=== PATIENT | male | born 1955 | race Caucasian/White ===

== ENCOUNTER 2018-08-25 23:43 | Inpatient (IN) | payer OTHER ==
[~2018-08-25] VITALS: Ht 172.7 cm; Wt 92.5 kg
[~2018-08-25 23:43] MED LIST: ASPIR 8181 MG PO; ATORVASTATIN CA40 MG PO; COQ-10100 MG PO; DURLAZA162.5 MG PO; EFFIENT10 MG PO; LOPRESSOR25 PO; NITROGLYCERIN0.4 MG SUBLING; PEPCID20 MG PO; PRINIVIL10 MG PO; SIMVASTATIN40 MG PO
[2018-08-25 23:47] VITALS: BP 165/76
[2018-08-25] MEDS ORDERED: CRESTOR20 MG PO (23:54)
[2018-08-26 00:21] LABS: ABSOLUTE NEUTROPHILS 5.6 thou/uL (1.4-8.2); BASOPHILS 0.8 % (0.0-2.0); EOSINOPHILS 3.2 % (0.0-3.0); HEMATOCRIT 40.4 % (42.0-52.0); HEMOGLOBIN 13.8 gm/dL (14.0-18.0); LYMPHOCYTES 34.6 % (24.0-44.0); MCH 29.3 pg (26.0-34.0); MCHC 34.1 g/dL (28.0-37.0); MCV 85.9 fL (80.0-100.0); MONOCYTES 10.8 % (1.0-8.0); PLATELET COUNT 260 thou/uL (150-400); POLYS 50.6 % (36.0-66.0); RDW 13.5 % (10.5-14.5); WBC 11.1 thou/uL (4.0-11.0)
[2018-08-26 00:32] LABS: ANION GAP 14 mmol/L (7-16); BUN 23 mg/dL (7-18); CALCIUM 9.3 mg/dL (8.5-10.1); CHLORIDE 103 mmol/L (98-107); CO2 24 mmol/L (21-32); CREATININE 1.2 mg/dL (0.7-1.3); GLUCOSE 112 mg/dL (74-106); POTASSIUM 3.6 mmol/L (3.5-5.1); SODIUM 141 mmol/L (136-145)
[2018-08-26 00:41] LABS: ALBUMIN 3.9 g/dL (3.4-5.0); SGOT 18 U/L (15-37); SGPT 32 U/L (30-65); TOTAL BILIRUBIN 0.3 mg/dL (<0.1-1.0); TOTAL PROTEIN 7.2 g/dL (6.4-8.2); TROPONIN-I <0.06 ng/mL (<0.06)
[2018-08-26 01:44] VITALS: BP 111/49
[2018-08-26 02:16] VITALS: BP 110/45
--- NOTE | 2018-08-26 05:37 | NUR ---
Pt an overnight admit from ED with Chest PAin. Initial Cardiac work up negative. Arrives on unit at 0158, with . Patient free from chest pain after all ED interventions. Pt admitted for Observation due to Cardiac history of 6 stents. On cp reported overnight. vitals remain stable. Will continue to follow POC.
[2018-08-26 05:49] LABS: CHOLESTEROL 121 mg/dL (<200); HDL CHOLESTEROL 30 mg/dL (>40); LDL CHOLESTEROL 73 mg/dL (<100); TRIGLYCERIDE 91 mg/dL (<150); VLDL 18 mg/dL (<40)
[2018-08-26 05:50] LABS: SERUM ASSESSMENT Clear
[2018-08-26 06:13] VITALS: BP 119/57
[2018-08-26 07:48] VITALS: BP 109/60
--- NOTE | 2018-08-26 08:57 | EKG ---
[address] [address] ELECTROCARDIOGRAM REPORT Name: ISELAJOSI IVAN Room #: 219-P ADM IN M.R.#: [id number] ������������������ Admission: 08/26/18 ������������������ Attend Phys: Nurys Villela Discharge: ������������������ Date of : 57 Report #: [id number] ����������������������������������������������������������������� [id number] THIS REPORT FOR: //name// [facility] ED Test Date: 2018-08-25 Test Time: 23:50:57 Pat Name: JOSI WEISS Department: Room: 219 Gender: M Retoucher: SHAVON : 1955 Requested By: Lara Franco Order Number: [id number] MD: Shaquille Landin Measurements Intervals [place] Rate: 69 P: 29 [place]: 201 QRS: 47 QRSD: 101 T: 44 QT: 403 QTc: 432 Interpretive Statements Sinus rhythm RSR' in V1 or V2, probably normal variant Compared to ECG 07/19/2015 22:57:20 RSR' in V1 or V2 now present Electronically Signed On 08-26-2018 8:57:12 CDT by Shaquille Landin [email or web address] ��������������������������������������������� <ELECTRONICALLY SIGNED> ���������������������������������������� By: Shaquille Landin MD, [facility] ��������������������������������������������� 08/26/18 0857 2350 2350 Shaquille Landin MD, [facility] /EPI
[2018-08-26] MEDS ORDERED: PROTONIX40 M1 PO (09:37)
[2018-08-26] MEDS ORDERED: NITROGLYCERIN0.4 MG SUBLING (09:37)
[2018-08-26 11:05] VITALS: BP 109/60
--- NOTE | 2018-08-26 19:52 | NUR ---
ASSUMED CARE OF PT AT 0700. PT A&OX4, UP AD MYRTLE. PT DENIED CHEST PAIN/PRESSURE THIS SHIFT. DR. CALVILLO ROUNDED ON PT AND GAVE OKAY FOR DISCHARGE. PT VITALS WERE WITHIN NORMAL LIMITS EXCEPT SBP WAS IN LOW 100'S. PT WAS SINUS RHYTHM WITH 1ST DEGREE BLOCK ON TELEMETRY. ONE IV AND TELEMETRY REMOVED. PT COMMUNICATED UNDERSTANDING OF ALL DISCHARGE ORDERS, MEDS, AND FOLLOW UP APPTS.
--- NOTE | 2018-08-29 09:55 | HC ---
[facility] [place] [address] CONSULTATION Name: JOSI WEISS Room #: 219-P [facility] IN M.R.#: [id number] Admission: 08/26/18 ������������������ Attend Phys: Nurys Villela Discharge: 08/26/18 ������������������ Date of : 57 Report #: [id number] THIS REPORT FOR: //name// CC: Tasia Villela DATE OF SERVICE: 08/26/2018 TYPE OF REPORT: Inpatient consultation. REQUESTING PHYSICIAN: Nurys Villela M.D. CHIEF COMPLAINT: Chest pain and epigastric pain. HISTORY OF PRESENT ILLNESS: The patient is a 63-year-old patient of mine who has a history of coronary artery disease and PCI in 2014. He felt really well yesterday. However, this morning in the middle of the night, he woke up with a sudden onset of a 6/10 epigastric pain lasted several minutes. It was not exertional. It went away on its own. This morning, he is asymptomatic. His presenting ECG was normal. His cardiac troponin levels are normal. He denies exertional symptoms. His symptoms are nothing like his pre-PCI pain in 2015. He denies weakness, fatigue, shortness of breath, orthopnea, PND, exertional chest pressure or tightness. PAST MEDICAL HISTORY: Significant for percutaneous coronary intervention in 2015, stenting to the LAD and circumflex and right coronary artery, posterolateral branch. He has normal LV function. He has hypertension and hyperlipidemia. HOME MEDICATIONS: Include aspirin, lisinopril 10 mg daily, metoprolol tartrate 12.5 mg daily and Zocor 40 mg daily. SOCIAL HISTORY: He is a nonsmoker. REVIEW OF SYSTEMS: GENERAL: No fevers or chills. PULMONARY: No wheezing or cough. GASTROINTESTINAL: No nausea, vomiting, hematemesis or melena. SKIN: No rashes. CARDIOVASCULAR: Positive chest pain. No orthopnea. No PND. No dyspnea with exertion. No edema. ENDOCRINE: He is not known to be a diabetic. [facility] [address] [place] [address] CONSULTATION Name: ISELAJOSI LOVE Room #: 219-[facility] IN ..#: [id number] Admission: 08/26/18 ������������������ Attend Phys: Nurys Villela Discharge: 08/26/18 ������������������ Date of : 57 Report #: [id number] SKIN: No rashes. GENERAL: No fevers or chills. PAST SURGICAL HISTORY: Prior vasectomy and PCI. PHYSICAL EXAMINATION: VITAL SIGNS: Blood pressure is 109/60 and pulse of 56. GENERAL: This is a pleasant, mildly obese adult male who is alert, oriented, in no apparent distress. HEENT: Eyes are intact. No facial asymmetry. NECK: Supple. No jugular venous distention. CARDIOVASCULAR: Regular. I cannot hear a murmur or S3. LUNGS: Clear to polyphagia. SKIN: No rashes. RADIOLOGICAL DATA: Electrocardiogram shows normal sinus rhythm and normal ST segments, 2 ECGs. Chest x-ray is negative chest. LABORATORY DATA: Hemoglobin is 13.8; white blood cell count 11.1 and platelet counts 260,000. Sodium is 141, potassium 3.6, chloride is 103, CO2 is 24, BUN is 23 and creatinine is 1.9. Troponin-I is 0.06 x 2 sets. BNP is 40. IMPRESSION: 1. Chest pain. The symptoms are atypical seemingly given that they are epigastric that they could be gastrointestinal in nature. He has ruled out for myocardial infarction. However, he should have an evaluation with a stress test, which can be performed outpatient. The patient ate breakfast this morning. 2. Coronary artery disease as noted above. We will check a treadmill nuclear stress test. He will continue with aspirin and p.r.n. nitrates as well as other medications. 3. Hyperlipidemia. 4. Coronary artery disease. ��������������������������������������������� <ELECTRONICALLY SIGNED> ���������������������������������������� By: Vishal Kunz MD, [facility] ��������������������������������������������� 08/29/18 0955 0911 0050 Vishal Kunz MD, FACC /nt
== END 2018-08-26 11:49 | disposition home or self-care (01) | DRG 392 ==
LOC: ER 23:43 → 2N 08-26 01:08 → EROBS 08-26 01:08 → 2N 08-26 01:43
PROVIDERS: Nurse Practitioner Family; Student in an Organized Health Care Education/Training Program; ADMIT Hospitalist
DX: K21.9 Gastro-esophageal reflux disease without esophagitis (principal); I10 Essential (primary) hypertension; E78.5 Hyperlipidemia, unspecified; I25.10 Atherosclerotic heart disease of native coronary artery without angina pectoris; E78.00 Pure hypercholesterolemia, unspecified; Z95.5 Presence of coronary angioplasty implant and graft; Z98.52 Vasectomy status; Z79.82 Long term (current) use of aspirin; Z79.899 Other long term (current) drug therapy
CPT/HCPCS: 10081

== ENCOUNTER → 2018-09-04 | Outpatient (CLI) | payer OTHER ==
[~2018-09-04] MED LIST changes: +CRESTOR20 MG PO; +PROTONIX40 M1 PO
== END ==
LOC: NUC 07:23
DX: R07.9 Chest pain, unspecified (principal); I25.110 Atherosclerotic heart disease of native coronary artery with unstable angina pectoris; E78.5 Hyperlipidemia, unspecified; I10 Essential (primary) hypertension; Z79.899 Other long term (current) drug therapy

== ENCOUNTER 2019-06-29 00:23 | Inpatient (IN) | payer OTHER ==
[2019-06-29] VITALS (7 sets, daily range): BP systolic 104–166; BP diastolic 48–73
[~2019-06-29] VITALS: Ht 170.2 cm; Wt 93.0 kg
[2019-06-29] MEDS ORDERED: ZETIA10 MG PO (00:27)
[2019-06-29 00:54] LABS: EOSINOPHILS 3.1 % (0.0-3.0); HEMATOCRIT 43.6 % (42.0-52.0); HEMOGLOBIN 14.5 gm/dL (14.0-18.0); LYMPHOCYTES 27.3 % (24.0-44.0); MCH 29.1 pg (26.0-34.0); MCHC 33.3 g/dL (28.0-37.0); MCV 87.4 fL (80.0-100.0); MONOCYTES 10.2 % (1.0-8.0); PLATELET COUNT 250 thou/uL (150-400); POLYS 58.4 % (36.0-66.0); RBC 4.99 mil/uL (4.50-6.00); RDW 14.2 % (10.5-14.5); WBC 10.3 thou/uL (4.0-11.0)
[2019-06-29 00:58] LABS: ANION GAP 11 mmol/L (7-16); BUN 28 mg/dL (7-18); CALCIUM 9.5 mg/dL (8.5-10.1); CHLORIDE 103 mmol/L (98-107); CO2 23 mmol/L (21-32); CREATININE 1.1 mg/dL (0.7-1.3); GLUCOSE 139 mg/dL (74-106); SODIUM 137 mmol/L (136-145)
[2019-06-29 01:07] LABS: LIPASE 133 U/L (73-393); TROPONIN-I <0.06 ng/mL (<0.06)
--- NOTE | 2019-06-29 03:54 | NUR ---
CALL REPORT TO TACOS JOSEPH.
[2019-06-29 06:01] LABS: CHOLESTEROL 104 mg/dL (<200); HDL CHOLESTEROL 30 mg/dL (>40); LDL CHOLESTEROL 61 mg/dL (<100); TC:HDL 3.5 Ratio (Not establshd); TRIGLYCERIDE 66 mg/dL (<150); VLDL 13 mg/dL (<40)
[2019-06-29 06:07] LABS: SERUM ASSESSMENT Clear
--- NOTE | 2019-06-29 08:17 | NUR ---
ASSUME CARE 1900. PT/VITALS STABLE. HR RUNS IN 40s AND 50S WITH PAUSES NOTED. CONITUOUS EPIGASTRIC PAIN WITH MILD RELIEF FROM MORPHINE. ASSESSMET CHARTED. CARDIOLOGY AND GI CONSULTED. PLAN IS TO CONTINUE TO MANAGE CVHEST PAIN. WOULD FOLLOW WITH POC.
--- NOTE | 2019-06-29 10:00 | NUR ---
DR. LEÓN PRESENT TO SEE PT THIS AM. HE DISCOVERED PT'S EPIGASTRIC PAIN WAS PRESENT IN HIS RUQ. PT TRANSPORTED TO RADIOLOGY DEPARTMENT, THEN BACK TO CCU IN WHEELCHAIR BY PCT. NPO. DR. LORA CONSULTED AND GI CONSULTED.
[2019-06-29 10:20] LABS: ALBUMIN 3.8 g/dL (3.4-5.0); CALCIUM 8.8 mg/dL (8.5-10.1); CREATININE 1.2 mg/dL (0.7-1.3); TOTAL BILIRUBIN 0.4 mg/dL (<0.1-1.0); TOTAL PROTEIN 6.9 g/dL (6.4-8.2)
--- NOTE | 2019-06-29 13:24 | EKG ---
[facility] [place] [address] [place] [address] ELECTROCARDIOGRAM REPORT Name: JOSI WEISS Room #: 218-P ADM IN M.R.#: [id number] Admission: 06/29/19 Attend Phys: Luis Olvera MD Discharge: Date of : 57 Report #: [id number] THIS REPORT FOR: cc: Tasia Jones MD, Cora A. MD Lundgren,Shaquille Salvador MD [facility] ~ THIS REPORT FOR: //name// [facility] ED Test Date: 2019-06-29 Test Time: 00:29:21 Pat Name: JOSI WEISS Department: Room: 218 Gender: M Exhibit Designer: JEFE BALDERRAMA : 1955 Requested By: Gautam Garcia Order Number: [id number] MD: Shaquille Landin Measurements Intervals [place] Rate: 69 P: 83 [place]: 218 QRS: 38 QRSD: 96 T: 49 QT: 401 QTc: 430 Interpretive Statements Sinus rhythm Borderline prolonged LA interval RSR' in V1 or V2, probably normal variant Compared to ECG 08/25/2018 23:50:57 No significant changes Electronically Signed On 06-29-2019 13:23:29 CDT by Shaquille Landin [email or web address] <ELECTRONICALLY SIGNED> By: Shaquille Landin MD, [facility] 06/29/19 1323 0029 0029 Shaquille Landin MD, [facility] /EPI
--- NOTE | 2019-06-29 13:25 | EKG ---
[facility] [place] [address] [place] [address] ELECTROCARDIOGRAM REPORT Name: JOSI WEISS Room #: 218-P ADM IN M.R.#: [id number] Admission: 06/29/19 Attend Phys: Luis Olvera MD Discharge: Date of : 57 Report #: [id number] THIS REPORT FOR: cc: Tasia Jones MD, Cora A. MD Lundgren,Shaquille Salvador MD [facility] ~ THIS REPORT FOR: //name// [facility] ED Test Date: 2019-06-29 Test Time: 01:11:25 Pat Name: JOSI WEISS Department: Room: 218 Gender: M Eyedotter: belle : 1955 Requested By: Gautam Garcia Order Number: [id number] MD: Shaquille Landin Measurements Intervals [place] Rate: 66 P: 45 [place]: 197 QRS: 21 QRSD: 102 T: 43 QT: 406 QTc: 426 Interpretive Statements Sinus rhythm RSR' in V1 or V2, probably normal variant Compared to ECG 08/25/2018 23:50:57 No significant change was found Electronically Signed On 06-29-2019 13:23:56 CDT by Shaquille Landin [email or web address] <ELECTRONICALLY SIGNED> By: Shaquille Landin MD, [facility] 06/29/19 1323 0111 0111 Shaquille Landin MD, [facility] /EPI
--- NOTE | 2019-06-29 13:25 | EKG ---
[facility] [place] [address] ELECTROCARDIOGRAM REPORT Name: JOSI WEISS Room #: 218-P ADM IN M.R.#: [id number] Admission: 06/29/19 Attend Phys: Luis Olvera MD Discharge: Date of : 57 Report #: [id number] THIS REPORT FOR: cc: Tasia Jones MD, Cora A. MD Lundgren,Shaquille Salvador MD [facility] ~ THIS REPORT FOR: //name// [facility] ED Test Date: 2019-06-29 Test Time: 01:32:30 Pat Name: JOSI WEISS Department: Room: 218 Gender: M Spanish Speaking Nanny: stacie : 1955 Requested By: Gautam Garcia Order Number: [id number] MD: Shaquille Landin Measurements Intervals [place] Rate: 57 P: 46 [place]: 230 QRS: 43 QRSD: 97 T: 46 QT: 416 QTc: 405 Interpretive Statements Sinus rhythm with sinus arrhythmia Atrial premature complexes Prolonged OR interval RSR' in V1 or V2, probably normal variant Baseline wander in lead(s) V3 Compared to ECG 08/25/2018 23:50:57 Atrial premature complex(es) now present Electronically Signed On 06-29-2019 13:24:50 CDT by Shaquille Landin [email or web address] <ELECTRONICALLY SIGNED> By: Shaquille Landin MD, [facility] 06/29/19 1324 1 1 Shaquille Landin MD, [facility] /EPI
--- NOTE | 2019-06-29 14:18 | NUR ---
DR. LORA PRESENT TO SEE PT. DETERMINED SURGERY TODAY. REMAINS NPO. PRESENT. PT TO SURGERY PER BED AFTER REPORT GIVEN TO PRE-OP RN.
--- NOTE | 2019-06-29 16:30 | NUR ---
RECEIVED BY CCU RN'S IN ROOM 218 POST TIERRA HWANG AT 1555. WHEN RN RETURNED FROM LUNCH BREAK, PT ASSESSED AT 1630. SEE ASSESSMENT FOR DETAILS.
--- NOTE | 2019-06-29 20:00 | NUR ---
TOLERATED ICE CHIPS, WATER. TOLERATING. ADVANCED TO CHICKEN BROTH. REMAINS PRESENT, PROVIDING SUPPORT. REPORT GIVEN TO WALT RAI RN.
[2019-06-30] VITALS (7 sets, daily range): BP systolic 101–118; BP diastolic 48–65
[2019-06-30 03:08] LABS: GLYCOHEMOGLOBIN (HGB A1C) 5.6 % (4.8-5.6)
--- NOTE | 2019-06-30 04:44 | NUR ---
ASSESSMENTS CHARTED, MEDS GIVEN CHARTED. PATIENT RESTING IN BED DURING SHIFT WITH AT BEDSIDE. TROPONINS ARE NEGATIVE X 3. ON TELEMETRY PT IS SINUS RHYTHM WITH 1ST DEGREE AND BORDER BBB. LUNGS ARE CLEAR. PATIENT C/O SORE THROAT. ICE AND BROTH DIET ADVANCED. UP AT MYRTLE. 4 LAP SITES IN ABDOMEN. ONE IS COVERED WITH GAUZE. ABX THERAPY. PLAN OF CARE IS TO GO HOME TODAY.
--- NOTE | 2019-06-30 11:06 | 2DMMODE ---
[facility] [address] [address] 2 D/M-MODE ECHOCARDIOGRAM Name: JOSI WEISS Room #: 218-P ADM IN M.R.#: [id number] Admission: 06/29/19 Attend Phys: Rina Person MD Discharge: Date of : 57 Report #: [id number] THIS REPORT FOR: cc: Tasia Jones MD, Cora A. MD Lammoglia, Francisco J. MD ~ APPROVED REPORT Study performed: 06/30/2019 10:20:47 EXAM: Comprehensive 2D, Doppler, and color-flow Echocardiogram Patient Location: Bedside Room #: 218 Status: routine BSA: 2.04 HR: 70 bpm BP: 102/50 mmHg Rhythm: NSR Other Information Study Quality: Adequate Indications CAD Chest Pain Hypertension/HDD S^P Gallbladder removal 2D Dimensions IVSd: 10.70 (7-11mm) LVOT Diam: 22.03 (18-24mm) LVDd: 46.24 mm PWd: 11.43 (7-11mm) Ascending Ao: 28.85 (22-36mm) LVDs: 29.29 (25-40mm) Aortic Root: 34.08 mm IVC: 23.00 mm Volumes Left Atrial Volume (Systole) Single Plane 4CH: 36.86 mL Single Plane 2CH: 35.78 mL LA ESV Index: 19.00 mL/m2 Aortic Valve AoV Peak Albin.: 1.54 m/s AO Peak Gr.: 9.48 mmHg LVOT Max P.25 mmHg LVOT Max V: 1.25 m/s [facility] [address] [place] [address] 2 D/M-MODE ECHOCARDIOGRAM Name: JOSI WEISS Room #: 218-P [facility] IN ..#: [id number] Admission: 06/29/19 Attend Phys: Mckinley Cramer Discharge: Date of : 57 Report #: [id number] INEZ Vmax: 3.09 cm2 Mitral Valve E/A Ratio: 1.7 MV Decel. Time: 183.22 ms MV E Max Albin.: 1.17 m/s MV A Albin.: 0.68 m/s MV PHT: 53.13 ms IVRT: 87.66 ms Pulmonary Valve PV Peak Albin.: 1.25 m/s PV Peak Gr.: 6.21 mmHg Pulmonary Vein P Vein S: 0.58 m/s P Vein A: 0.25 m/s P Vein D: 0.50 m/s P Vein A Dur.: 83.0 msec P Vein S/D Ratio: 1.16 Tricuspid Valve TR Peak Albin.: 2.41 m/s TR Peak Gr.: 23.15 mmHg PA Pressure: 33.00 mmHg Left Ventricle The left ventricle is normal size. There is normal LV segmental wall motion. There is normal left ventricular wall thickness. Left ventricular systolic function is normal. The left ventricular ejection fraction is within the normal range. LVEF is 60-65%. The left ventricular diastolic function is normal. Right Ventricle The right ventricle is normal size. The right ventricular systolic function is normal. Atria The left atrium size is normal. The right atrium size is normal. Aortic Valve The aortic valve is normal in structure. No aortic regurgitation is present. There is no aortic valvular stenosis. Mitral Valve The mitral valve is normal in structure. Trace mitral regurgitation. No evidence of mitral valve stenosis. [facility] [place] [address] 2 D/M-MODE ECHOCARDIOGRAM Name: JOSI WEISS Room #: 218-P ADM IN M.R.#: [id number] Admission: 06/29/19 Attend Phys: Mckinley Cramer Discharge: Date of : 57 Report #: [id number] Tricuspid Valve The tricuspid valve is normal in structure. There is trace tricuspid regurgitation. Estimated PAP 33 mmHg. There is mild pulmonary hypertension. Pulmonic Valve The pulmonary valve is normal in structure. There is no pulmonic valvular regurgitation. Great Vessels The aortic root is normal in size. IVC is dilated and collapses >50% with inspiration. Pericardium There is no pericardial effusion. <Conclusion> The left ventricle is normal size. LVEF is 60-65%. The aortic valve is normal in structure. The mitral valve is normal in structure. Trace mitral regurgitation. The tricuspid valve is normal in structure. There is trace tricuspid regurgitation. Estimated PAP 33 mmHg. There is mild pulmonary hypertension. The pulmonary valve is normal in structure. There is no pericardial effusion. <ELECTRONICALLY SIGNED> By: Mauricio Craig MD 06/30/19 1105 1105 1105 Mauricio Craig MD /INF
[2019-07-01 04:00] VITALS: BP 108/56
--- NOTE | 2019-07-01 04:08 | NUR ---
ASSESSMENTS CHARTED, MEDS GIVEN CHARTED. PATIENT HAD HYPOACTIVE BOWEL SOUNDS, CONSTIPATION AND FIRMING ABDOMEN. DRANK PRUNE JUICE AND WALKED 70 LAPS AROUND UNIT TO PROMOTE PERISTALSIS. PATIENT NOW PASSING FLATUS. BOWEL SOUNDS ACTIVE. PLAN IS TO GO HOME IN MORNING.
[2019-07-01 08:00] VITALS: BP 109/55
--- NOTE | 2019-07-01 08:01 | NUR ---
ASSUMED CARE OF PT AT SHIFT CHANGE, A&0X4, AMB STEADY, HAS GAS, WAITING ON BM, GAVE COFFEE HE'S USED TO IT, SLIGHT PAIN IN ABD RATED AT 3/10 WITH MOVEMENT. GAVE TYLENOL. IVF RUNNING. HAS BEEN AMBULATING HALLS EXTENSIVELY PER PACK OPERATOR REPORT. SEE SEPARATE INTERVENTIONS FOR ASSESSMENTS. ENCOURAGED PT TO USE CALL LIGHT FOR ANY NEEDS
[2019-07-01] MEDS ORDERED: ACETAMINOPHEN325 M1 PO (12:21)
[2019-07-01 13:01] VITALS: BP 109/55
--- NOTE | 2019-07-02 09:09 | HC ---
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 He carries a coronary history; however, his pain was distinctly dissimilar than his coronary presentation. He was found to have gallstones on CT scan. He describes his pain as some radiation to the back, but significant enough to cause a lot of tense muscles and he felt like this was may be the explanation for his back pain. No nausea, vomiting, no significant change in bowel pattern. His medical history is well summarized in the chart, but includes coronary artery disease with 6 cardiac stent 6 years ago, hypertension, hyperlipidemia, colon polyps and sinus arrhythmia. He denies significant alcohol or drug use. Lives at home with his and is retired from the . FAMILY HISTORY: Negative for inflammatory bowel disease or colon cancer. MEDICATIONS: List includes aspirin, Prinivil, metoprolol, CoQ10, Crestor, Zetia, pantoprazole. REVIEW OF SYSTEMS: Negative for weight loss, weakness or fatigue. He denies head, eyes, ears, nose or throat complaints. Denies chest pain, chest palpitation, chest pressure, cough, shortness of breath, wheezing, genitourinary, musculoskeletal or neuropsychiatric complaints otherwise. PHYSICAL EXAMINATION: GENERAL: Afebrile. VITAL SIGNS: Stable. HEENT: Nonicteric. NECK: No JVD, thyromegaly or bruits. CARDIOVASCULAR: Regular. LUNGS: Clear. ABDOMEN: Soft, nondistended. He does have some tenderness in the right upper quadrant with a positive Acuña sign, but no other evidence of rebound or [address] [address] CONSULTATION Name: JOSI WEISS Room #: 218-P [facility] IN ..#: [id number] Admission: 06/29/19 Attend Phys: Rina Person MD Discharge: 07/01/19 Date of : 57 Report #: [id number] rigidity. No abnormal masses or bruits. No hepatosplenomegaly. No stigmata of chronic liver disease. NEUROLOGIC: Deferred. RECTAL: Deferred. PERTINENT LABORATORY DATA: Include hemoglobin 14.5, white count 10.3, platelet count 250. Chemistry is notable for sodium 134, BUN 22, glucose 110. AST, ALT, alkaline phosphatase, bilirubin and lipase were normal. Imaging reveals normal chest x-ray abdomen and pelvis consistent with multiple gallstones filling the gallbladder. There is no evidence of biliary ductal dilatation. ASSESSMENT AND PLAN: In summary, the patient presents with symptomatic cholelithiasis and I recommend cholecystectomy. No further workup is recommended from a GI standpoint. I would shoot intraoperative cholangiogram to make sure that there are no intraoperative stones, even though his liver tests are normal. We will sign off for now, but are available as needed. Thanks for allowing me to participate in the care of this nice man. <ELECTRONICALLY SIGNED> By: Raul Monroe MD 07/02/19 0909 1403 1540 Malvin Mcbride MD /nt
--- NOTE | 2019-07-11 14:50 | O ---
[facility] [place] [address] [place] [address] OPERATIVE REPORT Name: JOSI WEISS Room #: 218-P [facility] IN M.R.#: [id number] Admission: 06/29/19 Attend Phys: Rina Person MD Discharge: 07/01/19 Date of : 57 Report #: [id number] THIS REPORT FOR: cc: Tasia Jones MD, Cora A. MD Joseph, Sigi P. MD ~ CC: Rina Jones DATE OF SERVICE: 06/29/2019 PREOPERATIVE DIAGNOSIS: Acute cholecystitis. POSTOPERATIVE DIAGNOSIS: Acute cholecystitis. OPERATIVE PROCEDURE DONE: Laparoscopic cholecystectomy. OPERATING SURGEON: Justen Hooper MD INDICATIONS FOR THE PROCEDURE: The patient is a 64-year-old male who presented with complaints of acute onset of epigastric pain. Clinical exam and ultrasound scan that was done, which showed features of acute cholecystitis. The patient was advised laparoscopic cholecystectomy. The patient showed understanding and agreed to proceed. DESCRIPTION OF PROCEDURE: After explaining the patient in detail and informed consent was obtained, the patient was identified in the preoperative holding area. The patient was transferred to the operating room and was placed in supine position. Sequential compression devices were placed for DVT prophylaxis. Preoperative antibiotics were given. After induction of anesthesia, the abdomen was prepped and draped in a sterile fashion. Through a right upper quadrant 1 cm incision and using Optiview technique, peritoneal cavity was entered and pneumoperitoneum was created. Thereafter, under direct vision, another 5 mm trocar was placed through a supraumbilical incision, another 5 mm trocar was placed in the epigastrium and one in the right lateral subcostal region. Upon initial inspection, the gallbladder appeared to be edematous and inflamed and infected. The gallbladder was retracted and the peritoneal reflection along the neck of the gallbladder was gently dissected off. Cystic duct was identified and was isolated from the surrounding structures. Cystic artery was identified and isolated from the surrounding structures. Cystic duct was then double clipped proximally and single clipped applied distally and was divided. Cystic artery also was then divided in a similar fashion. The gallbladder was gently dissected off the liver bed using hook electrocautery. Absolute hemostasis was achieved. Thorough saline irrigation was given. The gallbladder was retrieved using an EndoCatch through the lateral most incision. Incisions were then closed with 4-[address] [address] OPERATIVE REPORT Name: JOSI WEISS Room #: 218-P [facility] IN ..#: [id number] Admission: 06/29/19 Attend Phys: Rina Person MD Discharge: 07/01/19 Date of : 57 Report #: [id number] Dermabond was applied. The lateral incision was closed with 0 Vicryl using a suture passer. Incision was closed with 4-0 Monocryl. Dermabond was applied. The patient was stable at the end of the procedure. The patient was awoken from anesthesia and was transferred to the recovery room in stable condition. ESTIMATED BLOOD LOSS: Approximately 14 mL. CONDITION OF THE PATIENT: Stable. FLUIDS GIVEN: Per anesthesia notes. SPECIMEN SENT: Gallbladder. COMPLICATIONS: None. ANESTHESIA: General anesthesia. <ELECTRONICALLY SIGNED> By: Justen Hooper MD 07/11/19 1450 1212 1226 Justen Hooper MD /nt
== END 2019-07-01 11:00 | disposition home or self-care (01) | DRG 418 ==
LOC: ER 00:23 → 2N 03:29 → EROBS 03:29 → 2N 04:14 → ENTRNSPT 07-01 13:34 → EDTRNSPTSTS 07-01 13:38
PROVIDERS: Emergency Medicine; Internal Medicine; Nurse Practitioner Family; ADMIT Hospitalist
PROC: 0FT44ZZ Resection of Gallbladder, Percutaneous Endoscopic Approach (ICD-10-PCS; principal; 2019-06-29)
DX: K80.00 Calculus of gallbladder with acute cholecystitis without obstruction (principal); K56.7 Ileus, unspecified; I44.1 Atrioventricular block, second degree; K08.109 Complete loss of teeth, unspecified cause, unspecified class; I10 Essential (primary) hypertension; E78.00 Pure hypercholesterolemia, unspecified; R00.1 Bradycardia, unspecified; I25.10 Atherosclerotic heart disease of native coronary artery without angina pectoris; E78.5 Hyperlipidemia, unspecified; Z82.49 Family history of ischemic heart disease and other diseases of the circulatory system; Z86.010 Personal history of colon polyps; Z98.52 Vasectomy status; Z83.6 Family history of other diseases of the respiratory system; Z83.3 Family history of diabetes mellitus; Z95.5 Presence of coronary angioplasty implant and graft; Z79.82 Long term (current) use of aspirin; Z79.899 Other long term (current) drug therapy
CPT/HCPCS: 10081; 10797; 50101; 50249; 50411; 50555; 51489; 52265; 52266; 53307; 54022; 54118; 55245; 56462; 56525; 56526; 57257; 70005

== ENCOUNTER → 2020-02-19 | Outpatient (CLI) | payer OTHER ==
[~2020-02-19] MED LIST changes: +ACETAMINOPHEN325 M1 PO; +ZETIA10 MG PO
== END ==
LOC: SJCVCIMAG 02-13 08:39
PROVIDERS: ATTEND Internal Medicine
DX: I65.23 Occlusion and stenosis of bilateral carotid arteries (principal); I25.10 Atherosclerotic heart disease of native coronary artery without angina pectoris; I10 Essential (primary) hypertension; E78.5 Hyperlipidemia, unspecified; Z79.899 Other long term (current) drug therapy

== ENCOUNTER → 2020-08-25 | Outpatient (CLI) | payer OTHER | LOC: SJCVCIMAG 08:57 | PROVIDERS: ATTEND Internal Medicine | DX: R06.00 Dyspnea, unspecified (principal); I25.10 Atherosclerotic heart disease of native coronary artery without angina pectoris; E78.5 Hyperlipidemia, unspecified; I10 Essential (primary) hypertension; Z79.82 Long term (current) use of aspirin; Z79.899 Other long term (current) drug therapy; Z98.61 Coronary angioplasty status ==